=== PATIENT | male | born 1955 | race Two or more races ===

== ENCOUNTER 2025-03-25 08:43 | Day surgery (SDC) | payer OTHER ==
[2025-03-25] MEDS ORDERED: fentaNYL CITRATE 50 MCG/ML AMPUL IV PUSH ONE (12:30)
[2025-03-25] MEDS ORDERED: MIDAZOLAM HCL 2 MG/2 ML VIAL IV ONE (12:30)
[2025-03-25] MEDS ORDERED: DIPHENHYDRAMINE HCL 50 MG/ML VIAL 1ML IV ONE (12:30)
== END 2025-03-25 13:45 | disposition home or self-care (01) ==
LOC: AMB-ENDOS 08:43
PROVIDERS: ATTEND Internal Medicine
DX: D12.2 Benign neoplasm of ascending colon (principal); D12.3 Benign neoplasm of transverse colon; D12.4 Benign neoplasm of descending colon; R19.4 Change in bowel habit; K63.5 Polyp of colon

== ENCOUNTER 2025-04-22 12:00 | Day surgery (SDC) | payer OTHER ==
[2025-04-22] MEDS ORDERED: DIPHENHYDRAMINE HCL 50 MG/ML VIAL 1ML IV ONE (12:30)
[2025-04-22] MEDS ORDERED: MIDAZOLAM HCL 2 MG/2 ML VIAL IV ONE (12:30)
[2025-04-22] MEDS ORDERED: fentaNYL CITRATE 50 MCG/ML AMPUL IV PUSH ONE (12:30)
== END 2025-04-22 13:20 | disposition home or self-care (01) ==
LOC: AMB-ENDOS 12:00
PROVIDERS: ATTEND Internal Medicine
DX: K21.9 Gastro-esophageal reflux disease without esophagitis (principal); R10.13 Epigastric pain

== ENCOUNTER 2025-07-20 08:31 | Outpatient (CLI) | payer OTHER | END 2025-07-20 08:37 | disposition home or self-care (01) | LOC: TOM 08:31 | DX: R10.9 Unspecified abdominal pain (principal); G89.29 Other chronic pain ==